=== PATIENT | female | born 1950 | race Caucasian/White ===

== ENCOUNTER 2022-02-22 08:00 | Outpatient (RCR) | payer MEDICARE, SELFPAY ==
[2022-02-08 08:18] VITALS: BP 184/75; PULSE 87; RESP 16; TEMP 35.7; BMI 37.4
--- NOTE | 2022-02-08 09:56 | PCM.WC.HP ---
History of Present Illness Date of Service: 02/08/22 Chief Complaint: Chronic venous stasis dermatitis, chronic venous insufficiency, hyperpigmentation, lipodermatosclerosis, swelling, edema -right lower extremity History of Wound: This is a 71-year-old obese female who presented with a 1 year history of venous stasis dermatitis located on the right pretibial area. The patient has a longstanding history of swelling and edema in her lower extremities, which is more severe and profound in the evenings. She also has pain, itching, and burning. She claims to sleep on a flat mattress at night. She is active. She denies a history of thrombophlebitis. Most recently, the patient has been treated at [facility], where Unna boots have been administered to the right lower extremity on a weekly basis for approximately 3 weeks. There has been only mild improvement, and the patient was referred for subsequent evaluation and management. Patient is obese and suffers from hypertension. [facility] Medical History Chronic venous hypertension with inflammation involving right side Chronic venous insufficiency Edema of both legs Hyperpigmentation Hypertension Left leg swelling Lipodermatosclerosis of right lower extremity Obesity (BMI 30-39.9) Right leg swelling Venous stasis dermatitis of right lower extremity Home Medications cholecalciferol (vitamin D3) 25 mcg (1,000 unit) capsule (Vitamin D3) 25 mcg PO 4X/DAY 02/08/22 [History Last Taken Unknown] glucosamine-chondroitin 250 mg-200 mg tablet (Osteo Bi-Flex) 2 tab PO DAILY 02/08/22 [History Last Taken Unknown] magnesium 250 mg tablet 250 mg PO DAILY 02/08/22 [History Last Taken Unknown] metoprolol succinate 50 mg tablet,extended release 24 hr 50 mg PO DAILY 02/08/22 [History Last Taken Unknown] Allergy/AdvReac Type Severity Reaction Status Date / Time Sulfa (Sulfonamide Allergy Other Verified 02/08/22 08:43 Antibiotics) Surgical History History of shoulder surgery Social History Smoking Status: Never smoker Vital Signs Vital Signs Vital Signs: 02/08/22 08:18 Temperature 96.2 F L Temperature Source Temporal Pulse Rate 87 Respiratory Rate 16 Blood Pressure 184/75 H Blood Pressure Mean 111 Blood Pressure Source Monitor Blood Pressure Position Sitting Blood Pressure Location Right Forearm Oxygen Delivery Method Room Air Weight Weight: 232 lb Body Mass Index (BMI) 37.4 Physical Exam Const alert, oriented x3, no apparent distress and well nourished Constitutional Narrative: The patient is obese. General Appearance: cooperative, comfortable, well kempt and well developed Orientation / Consciousness: awake, oriented to person, oriented to place and oriented to time Exam Limitations: no limitations HEENT normocephalic, head/scalp atraumatic, hearing grossly normal bilaterally and external ears normal Head and Scalp: normal to inspection, normocephalic and atraumatic Face and Sinus: normal facial exam External Ear: external ears normal Eyes PERRL and EOMs intact bilaterally General Eye: normal appearance of both eyes Resp normal respiratory effort, normal air movement, no retractions and no use of accessory muscles Effort and Inspection: able to speak in complete sentences Extremity no calf tenderness General Extremity: Negative for clubbing or cyanosis Skin Wound Narrative: Lipodermatosclerosis and hyperpigmentation are noted on the right pretibial area. There are no open wounds or ulcerations. Moderate swelling and edema are noted in the lower extremities bilaterally. Scattered varicosities are noted. Neuro oriented x3, CN's II-XII intact bilaterally, moves all extremities and no focal motor deficits Sensorium / Orientation: awake, alert, oriented to person, oriented to place and oriented to time Psych Appearance: grossly normal and appropriate Attitude: calm Activity / Motor Behavior: appropriate eye contact Speech: normal speech Mood & Affect: euthymic mood Thought Process: normal thought process Thought Content: normal thought content Attention / Concentration: attention grossly intact Debridement Note Debridement Note No debridement was completed: No debridement was completed today (There are no open wounds or ulcerations.) Post-Debridement Measurements and Additional Note: Post-Debridement Measurements/Treatment [facility]INA - Nurse 1 - General Ulcer Assessment Start: 02/08/22 08:14 Freq: Status: Active Protocol: DOTTIE Activity Type Activity Date Activity User E-sign Co-sign Detail Recorded Client Recorded Date Recorded By Document 02/08/22 08:18 MW [id number] 02/08/22 08:29 MW 02/08/22 08:18 WC - Today's Visit Information Type of service Initial Visit Arrival Mode Ambulatory Transfer Assistance None Accompanied by Patient Identification Verified (Name & Yes ) Patient Requires Transmission-Based No Precautions Safety Precautions NA Height and Weight Height 5 ft 6 in Weight 232 lb Weight in Pounds 232.0 lbs Body Mass Index (BMI) 37.4 BMI Classification Obese BSA - Azeem 2.13 Vital Signs Temperature (97.8 F-99.1 F) 96.2 F L Temperature Source Temporal Pulse Rate (60-100) 87 Pulse Location Monitor Respiratory Rate (12-18) 16 Respiratory rate source Observation Oxygen Delivery Method Room Air Blood Pressure (90/60-120/80) 184/75 H Blood Pressure Mean 111 Source Monitor Position Sitting Blood Pressure Location Right Forearm History Since Last Visit- (Skip if this is Patient's initial visit) Left Footwear Regular Shoe Right Footwear Regular Shoe Pain Scale: 0-10 Numeric Is Patient Pain Free? Yes Lower Extremity Assessment/ Foot Assessment/ Toe Nail Assessment Right -Popliteal Doppler Monophasic -Posterior Tibial Palpable No -Posterior Tibial Doppler Monophasic -Dorsalis Pedis Palpable No -Dorsalis Pedis Doppler Monophasic -Extremity Color Red -Hair Growth on Legs No -Hair Growth on Toes No -Temperature of Extremity Warm -Capillary Refill Less than 3 Seconds -Dependent Rubor No -Blanched when Elevated N/A -Lipodermatosclerosis No -Other Deformity No -Prior Foot Ulcer No -Charcot Joint No -Prior Amputation No -Thick No -Discolored No -Deformed No -Improper Length & Hygeine No Left -Popliteal Doppler Monophasic -Posterior Tibial Palpable No -Posterior Tibial Doppler Monophasic -Dorsalis Pedis Palpable No -Dorsalis Pedis Doppler Monophasic -Extremity Color Normal -Hair Growth on Legs No -Hair Growth on Toes No -Temperature of Extremity Warm -Capillary Refill Less than 3 Seconds -Dependent Rubor No -Blanched when Elevated N/A -Lipodermatosclerosis No -Other Deformity No -Prior Foot Ulcer No -Charcot Joint No -Prior Amputation No -Thick No -Discolored No -Deformed No -Improper Length & Hygeine No Neuropathy Assessment Feet - Top Side and Bottom <Entered> (a) Communication Assessment Preferred language Lithuanian Environmental Manager Required No Able to Read Yes Able to Write Yes Communication Tools None Right Hearing Abillity Normal Left Hearing Abillity Normal Visual Assistive Devices Glasses Teaching Assessment Preferences Verbal,Written Barriers to Learning None Readiness To Learn Excellent Willingness to Engage in Self Management High Activies Readiness to Engage in Self Management High Activities Anxiety Level Calm Cooperation Cooperative Perception Coherent Interest in Health Problem Asks Questions Education Importance Acknowledges Need Does Patient Smoke tobacco or other No substances Smoking Status Never smoker Is Patient Diabetic No Functional Assessment Recent Decline in Ability to Perform Denies Any Declines Assistive Device With Patient No Culture/Restorationism/Reading Teacher Cultural/Restorationism Needs that may affect No Treatment Plan Would you allow our hospital mechanical unit repairer to No meet you for the purpose of spiritual/ emotional support? Reading Teacher to contact place of [employer] No Teaching: Wound Center *Welcome to the Wound Center -Person Taught Patient -Teaching Method Discussion -Response to teaching Verbalize understanding (a) 1 - + WC - Nurse 1 - General Ulcer Measurement Start: 02/08/22 08:14 Freq: Status: Active Protocol: Activity Type Activity Date Activity User E-sign Co-sign Detail Recorded Client Recorded Date Recorded By Document 02/08/22 08:18 MW [id number] 02/08/22 08:29 MW 02/08/22 08:18 Wound Center Nurse 1 #1 right forrest -Combined with other wound No -Current Size (cm) - Length 0.8 -Current Size (cm) - Width 0.4 -Current Size (cm) - Depth 0.1 -Total Square Cm 0.32 -Date of Last Picture (Recall this 02/08/22 field) -Photo Taken Yes -Epithelialization None Present -Tunneling No -Undermining/Tunneling No -Circular Undermining No -Exudate Amt Small -Exudate Type Serosanguineous -Wound Margin Flat & Intact -Granulation Amt Small (1-33%) -Granulation Quality [place] -Slough/Fibrin Yes -Necrosis Amt Medium (34-66%) -Necrotic Tissue Type Adherent Slough -Structure Exposed N/A -Texture (Connie-wound Skin Appearance) Assessed, Localized Edema ,Scarring -Moisture (Connie-wound Skin Appearance) Assessed, Weeping -Color (Connie-wound Skin Appearance) Assessed, Hemosiderin Staining,Rubor -Temperature (Connie-wound Skin No Abnormality Appearance) (Pt Warm) -Tenderness on Palpation (Connie-wound No Skin Appearance) -Ulcer Cleansing Rinsed/ Irrigated with Saline -Foul Odor after Cleansing No -Anesthetic Used 5% Lidocaine Gel Lower Limb Edema Present Yes Right Calf (cm) 46.0 Right Ankle (cm) 25.5 Left Calf (cm) 46.6 Left Ankle (cm) 25.0 WC - Nurse 3 - General Ulcer D/C NN Start: 02/08/22 08:14 Freq: Status: Active Protocol: Activity Type Activity Date Activity User E-sign Co-sign Detail Recorded Client Recorded Date Recorded By Document 02/08/22 08:58 MI [id number] 02/08/22 09:00 AK 02/08/22 08:58 Wound Care Nurse 3 #1 right forrest -Ulcer Cleansing Rinsed/ Irrigated with Saline -Foul Odor after Cleansing No -Negative Pressure Wound Therapy N/A Left -Lotion applied to leg before No compression wrap -Multi-Layered Wrap Application Multi-Layer Comp - Left ($) Right -Lotion applied to leg before No compression wrap -Multi-Layered Wrap Application Unna Boot - Right ($) Pain Scale: 0-10 Numeric Is Patient Pain Free? Yes WC - Visit Discharge Discharge Condition Stable Ambulatory Status Ambulatory Transportation Private Auto Accompanied by Medication Reconcilliation completed & Yes provided to patient/care provider Clinical Summary of Care Provided Yes Notes: Naya olson Assessment/Plan Assessment/Plan (1) Venous stasis dermatitis of right lower extremity: CODE(S): I87.2 - Venous insufficiency (chronic) (peripheral) (2) Chronic venous hypertension with inflammation involving right side: CODE(S): I87.321 - Chronic venous hypertension (idiopathic) with inflammation of right lower extremity (3) Chronic venous insufficiency: CODE(S): I87.2 - Venous insufficiency (chronic) (peripheral) (4) Hyperpigmentation: CODE(S): L81.9 - Disorder of pigmentation, unspecified (5) Lipodermatosclerosis of right lower extremity: CODE(S): I83.11 - Varicose veins of right lower extremity with inflammation (6) Right leg swelling: CODE(S): M79.89 - Other specified soft tissue disorders (7) Left leg swelling: CODE(S): M79.89 - Other specified soft tissue disorders (8) Edema of both legs: CODE(S): R60.0 - Localized edema (9) Obesity (BMI 30-39.9): CODE(S): E66.9 - Obesity, unspecified (10) Hypertension: CODE(S): I10 - Essential (primary) hypertension (11) History of shoulder surgery: CODE(S): Z98.890 - Other specified postprocedural states PLAN: Plan This is a 71-year-old obese female who presents with evidence of chronic venous insufficiency and venous hypertension, and a finding of venous stasis dermatitis on the right pretibial area. She also has a history of swelling and edema in her lower extremities bilaterally, which which is more pronounced late in each day. The patient and her have been counseled as to the appropriate conservative treatment measures to be implemented relative to her chronic venous disease. Leg elevation is to be implemented, both during daytime and nighttime hours. Her legs are to be elevated to heart level, or higher. She is to continue sleeping on a flat mattress at night. Prolonged idle standing and sitting has been discouraged. Activity has been encouraged. Weight loss has been recommended. We are to implement compression to the lower extremities by means of compression wraps. On the right, we are to implement the use of an Unna boot. On the left, where there are no skin changes, we are to implement the use of 3M 2 layer compression wrap. Both lower extremity compression wraps will be changed twice weekly. We are to obtain a venous duplex examination to assess the status of the patient's venous patency and competence. She is to return in 1 week for reevaluation. Total time: 28 minutes
--- NOTE | 2022-02-11 08:44 | VDLE_ITS ---
Reason For Study: Non Healing Wound RIGHT LEFT CFV is compressible, spontaneous, phasic, CFV is compressible, spontaneous, phasic, competent and demonstrates normal competent, and demonstrates normal augmentation. augmentation. FV is compressible, spontaneous, phasic, FV is compressible, spontaneous, phasic, competent and demonstrates normal competent and demonstrates normal augmentation. augmentation. POP V is compressible, spontaneous, phasic, POP V is compressible, spontaneous, phasic, competent and demonstrates normal competent and demonstrates normal augmentation. augmentation. T/P Trunk is compressible. T/P Trunk is compressible. PTV is compressible. PTV is compressible. RT PerV is compressible. LT PerV is compressible. SFJ is INCOMPETENT and measures 0.52cm x 0.55 SFJ is competent and measures 0.51cm x0.48 cm. cm. GSV proximal thigh measures 0.34cm x 0.34 cm. GSV proximal thigh measures 0.36cm x 0.33 cm. GSV at knee measures 0.28cm x 0.32 cm. GSV at knee measures 0.44cm x 0.46 cm. GSV above knee is INCOMPETENT for greater GSV INCOMPETENT throughout for greater than than 0.5 seconds. 0.5 seconds. GSV below knee is competent. SSV proximal calf is competent and measures SSV proximal calf is INCOMPETENT for greater 0.25cm x 0.24 cm. than 0.5 seconds and measures 0.57cm x 0.64 Lt ASV mid thigh is Incompetent with reflux cm. greater than 0.5 sec. Rt ASV at the knee is Incompetent with reflux greater than 0.5 sec and a diameter of 0.38cm x 0.42cm. Procedure This is a venous duplex using B-mode, color flow and spectral Doppler. Exam performed in department. A preliminary report was called and/or faxed to Dr. Livingston. VL/Venous Duplex US - Kevin Extrem Interpretation Summary Deep veins of the lower extremities are bilaterally patent and compressible seg mentally. There is no evidence of deep vein thrombosis on either side. Valvular competence appears in tact within the proximal deep venous systems bilaterally. The great saphenous veins appear bila terally patent and compressible segmentally. The right sapheno-femoral junction is incompetent . T he left sapheno- femoral junction is competent . The right great saphenous vein appears incompet ent above the knee. The right great saphenous vein appears competent below the knee. The left great saphenous vein appears segmentally incompetent. The right small saphenous vein is patent and i ncompetent. The left small saphenous vein is patent and competent. The accessory saphenous vein at t he right knee is incompetent. The accessory saphenous vein in the left mid-thigh is incompetent. Ordering Physician: Luis Livingston Performed By: Reshma Wynn, THANH, RVT
[2022-02-11 11:38] VITALS: BP 198/76; PULSE 73; RESP 18; TEMP 36.2; BMI 37.4
[2022-02-15 13:18] VITALS: BP 177/81; PULSE 72; RESP 16; TEMP 35.8; BMI 37.4
--- NOTE | 2022-02-15 16:06 | PCM.WC.HP ---
History of Present Illness Date of Service: 02/15/22 Chief Complaint: Chronic venous stasis dermatitis, chronic venous insufficiency, hyperpigmentation, lipodermatosclerosis, swelling, edema - right lower extremity History of Wound: This is a 71-year-old obese female who presented with a 1 year history of venous stasis dermatitis located on the right pretibial area. The patient has a longstanding history of swelling and edema in her lower extremities, which is more severe and profound in the evenings. She also has pain, itching, and burning. She claims to sleep on a flat mattress at night. She is active. She denies a history of thrombophlebitis. The patient had been treated at [facility], where Unna boots had been administered to the right lower extremity on a weekly basis for approximately 3 weeks. There had been only mild improvement, and the patient was referred for subsequent evaluation and management. The patient is obese and suffers from hypertension. [facility] Medical History Chronic venous hypertension with inflammation involving right side Chronic venous insufficiency Edema of both legs Hyperpigmentation Hypertension Left leg swelling Lipodermatosclerosis of right lower extremity Obesity (BMI 30-39.9) Right leg swelling Venous stasis dermatitis of right lower extremity Home Medications cholecalciferol (vitamin D3) 25 mcg (1,000 unit) capsule (Vitamin D3) 25 mcg PO 4X/DAY 02/08/22 [History Last Taken Unknown] glucosamine-chondroitin 250 mg-200 mg tablet (Osteo Bi-Flex) 2 tab PO DAILY 02/08/22 [History Last Taken Unknown] magnesium 250 mg tablet 250 mg PO DAILY 02/08/22 [History Last Taken Unknown] metoprolol succinate 50 mg tablet,extended release 24 hr 50 mg PO DAILY 02/08/22 [History Last Taken Unknown] Allergy/AdvReac Type Severity Reaction Status Date / Time Sulfa (Sulfonamide Allergy Other Verified 02/08/22 08:43 Antibiotics) Surgical History History of shoulder surgery Social History Smoking Status: Never smoker Vital Signs Vital Signs Vital Signs: 02/15/22 13:18 Temperature 96.4 F L Temperature Source Temporal Pulse Rate 72 Respiratory Rate 16 Blood Pressure 177/81 H Blood Pressure Mean 113 Blood Pressure Source Monitor Blood Pressure Position Sitting Blood Pressure Location Left Forearm Oxygen Delivery Method Room Air Weight Weight: 232 lb Body Mass Index (BMI) 37.4 Physical Exam Const alert, oriented x3, no apparent distress and well nourished Constitutional Narrative: The patient is obese. General Appearance: cooperative, comfortable, well kempt and well developed Orientation / Consciousness: awake, oriented to person, oriented to place and oriented to time Exam Limitations: no limitations HEENT normocephalic, head/scalp atraumatic, hearing grossly normal bilaterally and external ears normal Head and Scalp: normal to inspection, normocephalic and atraumatic Face and Sinus: normal facial exam External Ear: external ears normal Eyes PERRL and EOMs intact bilaterally General Eye: normal appearance of both eyes Resp normal respiratory effort, normal air movement, no retractions and no use of accessory muscles Effort and Inspection: able to speak in complete sentences Extremity no calf tenderness General Extremity: Negative for clubbing or cyanosis Skin Wound Narrative: Lipodermatosclerosis and hyperpigmentation are noted on the right pretibial area, as well as inflammatory erythema. A very small excoriation is noted on the right pretibial area. Dimensions are documented elsewhere. Swelling and edema in the right lower extremity is minimal. Scattered varicosities are noted. Neuro oriented x3, CN's II-XII intact bilaterally, moves all extremities and no focal motor deficits Sensorium / Orientation: awake, alert, oriented to person, oriented to place and oriented to time Psych Appearance: grossly normal and appropriate Attitude: calm Activity / Motor Behavior: appropriate eye contact Speech: normal speech Mood & Affect: euthymic mood Thought Process: normal thought process Thought Content: normal thought content Attention / Concentration: attention grossly intact Debridement Note Debridement Note No debridement was completed: No debridement was completed today (There are no open wounds or ulcerations.) Post-Debridement Measurements and Additional Note: Post-Debridement Measurements/Treatment FINA - Nurse 1 - General Ulcer Assessment Start: 02/08/22 08:14 Freq: Status: Active Protocol: DOTTIE Activity Type Activity Date Activity User E-sign Co-sign Detail Recorded Client Recorded Date Recorded By Document 02/08/22 08:18 MW [id number] 02/08/22 08:29 MW Document 02/11/22 11:38 RB [id number] 02/11/22 11:40 RB Document 02/15/22 13:18 MW [id number] 02/15/22 13:36 MW 02/08/22 02/11/22 02/15/22 08:18 11:38 13:18 WC - Today's Visit Information Type of service Initial Visit Nurse-only Follow-up Visit Visit (Physician/VP SOFTWARE SUPPORT ) Arrival Mode Ambulatory Ambulatory Ambulatory Transfer Assistance None None None Accompanied by Patient Identification Verified (Name & Yes Yes Yes ) Patient Requires Transmission-Based No No No Precautions Safety Precautions NA NA Height and Weight Height 5 ft 6 in Weight 232 lb Weight in Pounds 232.0 lbs Body Mass Index (BMI) 37.4 37.4 37.4 BMI Classification Obese Obese Obese BSA - Azeem 2.13 Vital Signs Temperature (97.8 F-99.1 F) 96.2 F L 97.1 F L 96.4 F L Temperature Source Temporal Temporal Temporal Pulse Rate (60-100) 87 73 72 Pulse Location Monitor Monitor Monitor Respiratory Rate (12-18) 16 18 16 Respiratory rate source Observation Observation Observation Oxygen Delivery Method Room Air Room Air Blood Pressure (90/60-120/80) 184/75 H 198/76 H 177/81 H Blood Pressure Mean 111 116 113 Source Monitor Monitor Monitor Position Sitting Semi-Fowlers Sitting Blood Pressure Location Right Forearm Left Arm Left Forearm History Since Last Visit- (Skip if this is Patient's initial visit) Have you changed medications since your No No last visit? Any new allergies or adverse reactions No No Had a fall/change in ADL's that may No No increase risk of falls Signs or symptoms of abuse and/or No No neglect since last visit Have you been in the hospital since your No last visit? Has dressing in place as prescribed Yes Yes Has compression in place as prescribed Yes Yes Has offloadiing in place as prescribed No N/A Experienced any changes in pain level or No No management Left Footwear Regular Shoe Regular Shoe Right Footwear Regular Shoe Regular Shoe Pain Scale: 0-10 Numeric Is Patient Pain Free? Yes Yes Yes Lower Extremity Assessment/ Foot Assessment/ Toe Nail Assessment Right -Popliteal Doppler Monophasic -Posterior Tibial Palpable No -Posterior Tibial Doppler Monophasic -Dorsalis Pedis Palpable No -Dorsalis Pedis Doppler Monophasic -Extremity Color Red -Hair Growth on Legs No -Hair Growth on Toes No -Temperature of Extremity Warm -Capillary Refill Less than 3 Seconds -Dependent Rubor No -Blanched when Elevated N/A -Lipodermatosclerosis No -Other Deformity No -Prior Foot Ulcer No -Charcot Joint No -Prior Amputation No -Thick No -Discolored No -Deformed No -Improper Length & Hygeine No Left -Popliteal Doppler Monophasic -Posterior Tibial Palpable No -Posterior Tibial Doppler Monophasic -Dorsalis Pedis Palpable No -Dorsalis Pedis Doppler Monophasic -Extremity Color Normal -Hair Growth on Legs No -Hair Growth on Toes No -Temperature of Extremity Warm -Capillary Refill Less than 3 Seconds -Dependent Rubor No -Blanched when Elevated N/A -Lipodermatosclerosis No -Other Deformity No -Prior Foot Ulcer No -Charcot Joint No -Prior Amputation No -Thick No -Discolored No -Deformed No -Improper Length & Hygeine No Neuropathy Assessment Feet - Top Side and Bottom <Entered> (a) Communication Assessment Preferred language [employer] Up Technician Required No Able to Read Yes Able to Write Yes Communication Tools None Right Hearing Abillity Normal Left Hearing Abillity Normal Visual Assistive Devices Glasses Teaching Assessment Preferences Verbal,Written Barriers to Learning None Readiness To Learn Excellent Willingness to Engage in Self Management High Activies Readiness to Engage in Self Management High Activities Anxiety Level Calm Cooperation Cooperative Perception Coherent Interest in Health Problem Asks Questions Education Importance Acknowledges Need Does Patient Smoke tobacco or other No substances Smoking Status Never smoker Is Patient Diabetic No Functional Assessment Recent Decline in Ability to Perform Denies Any Declines Assistive Device With Patient No Culture/Protestant/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 Airfreight Loading Supervisor to contact place of christianity No Teaching: Wound Center *Welcome to the Wound Center -Person Taught Patient -Teaching Method Discussion -Response to teaching Verbalize understanding (a) 1 - + WC - Nurse 1 - General Ulcer Measurement Start: 02/08/22 08:14 Freq: Status: Active Protocol: Activity Type Activity Date Activity User E-sign Co-sign Detail Recorded Client Recorded Date Recorded By Document 02/08/22 08:18 MW [id number] 02/08/22 08:29 MW Document 02/11/22 11:38 RB [id number] 02/11/22 11:40 RB Document 02/15/22 13:18 MW [id number] 02/15/22 13:36 MW 02/08/22 02/11/22 02/15/22 08:18 11:38 13:18 Wound Center Nurse 1 #1 right forrest -Combined with other wound No No -Current Size (cm) - Length 0.8 0.1 -Current Size (cm) - Width 0.4 0.1 -Current Size (cm) - Depth 0.1 0.1 -Total Square Cm 0.32 0.01 -Date of Last Picture (Recall this 02/08/22 field) -Photo Taken Yes -Epithelialization None Present Large 67-100% -Tunneling No No -Undermining/Tunneling No No -Circular Undermining No No -Exudate Amt Small Small -Exudate Type Serosanguineous Serosanguineous -Wound Margin Flat & Intact Flat & Intact -Granulation Amt Small (1-33%) Large (67-100%) -Granulation Quality Tracy Tracy -Slough/Fibrin Yes Yes -Necrosis Amt Medium (34-66%) Small (1-33%) -Necrotic Tissue Type Adherent Slough Adherent Slough -Structure Exposed N/A N/A -Texture (Connie-wound Skin Appearance) Assessed, Assessed, Localized Edema Localized Edema ,Scarring ,Scarring -Moisture (Connie-wound Skin Appearance) Assessed, Assessed,Dry/ Weeping Scaly -Color (Connie-wound Skin Appearance) Assessed, Assessed, Hemosiderin Hemosiderin Staining,Rubor Staining -Temperature (Connie-wound Skin No Abnormality No Abnormality Appearance) (Pt Warm) (Pt Warm) -Tenderness on Palpation (Connie-wound No No Skin Appearance) -Ulcer Cleansing Rinsed/ Soap and Water Irrigated with Saline -Foul Odor after Cleansing No No -Anesthetic Used 5% Lidocaine 5% Lidocaine Gel Gel Lower Limb Edema Present Yes Yes Yes Right Calf (cm) 46.0 46 45.5 Right Ankle (cm) 25.5 25 26.0 Left Calf (cm) 46.6 45.2 45.0 Left Ankle (cm) 25.0 24.5 24.8 WC - Nurse 2 - General Ulcer CM Notes Start: 02/08/22 08:14 Freq: Status: Active Protocol: Activity Type Activity Date Activity User E-sign Co-sign Detail Recorded Client Recorded Date Recorded By Document 02/15/22 15:05 PL [id number] 02/15/22 15:06 PL 02/15/22 15:05 Wound Center Nurse 2 #1 right forrest -Procedure Performed No -Post Debridement (cm) - Length 0.1 -Post Debridement (cm) - Width 0.1 -Post Debridement (cm) - Depth 0.1 -Total Square (Post) (cm) 0.01 Pain Scale: 0-10 Numeric Is Patient Pain Free? Yes WC - Nurse 3 - General Ulcer D/C NN Start: 02/08/22 08:14 Freq: Status: Active Protocol: Activity Type Activity Date Activity User E-sign Co-sign Detail Recorded Client Recorded Date Recorded By Document 02/08/22 08:58 AK [id number] 02/08/22 09:00 AK Document 02/11/22 11:38 RB [id number] 02/11/22 11:40 RB Document 02/15/22 14:22 ML [id number] 02/15/22 14:22 ML 02/08/22 02/11/22 02/15/22 08:58 11:38 14:22 Wound Care Nurse 3 #1 right forrest -Ulcer Cleansing Rinsed/ Irrigated with Saline -Foul Odor after Cleansing No -Negative Pressure Wound Therapy N/A Left -Lotion applied to leg before No compression wrap -Multi-Layered Wrap Application Multi-Layer Multi-Layer Unna Boot - Comp - Left ($) Comp - Left ($) Left ($) Right -Lotion applied to leg before No compression wrap -Multi-Layered Wrap Application Unna Boot - Unna Boot - Multi-Layer Right ($) Right ($) Comp - Right ($ ) Treatment Response Procedure Tolerated Well Vital Signs Temperature (97.8 F-99.1 F) 97.1 F L Temperature Source Temporal Pulse Rate (60-100) 73 Pulse Location Monitor Respiratory Rate (12-18) 18 Respiratory rate source Observation Blood Pressure (90/60-120/80) 198/76 H Blood Pressure Mean 116 Source Monitor Position Semi-Fowlers Blood Pressure Location Left Arm Pain Scale: 0-10 Numeric Is Patient Pain Free? Yes Yes Yes WC - Visit Discharge Discharge Condition Stable Stable Ambulatory Status Ambulatory Ambulatory Transportation Private Auto Private Auto Accompanied by Medication Reconcilliation completed & Yes No provided to patient/care provider Clinical Summary of Care Provided Yes Yes Notes: Naya whitney Assessment/Plan Assessment/Plan (1) Venous stasis dermatitis of right lower extremity: CODE(S): I87.2 - Venous insufficiency (chronic) (peripheral) (2) Chronic venous hypertension with inflammation involving right side: CODE(S): I87.321 - Chronic venous hypertension (idiopathic) with inflammation of right lower extremity (3) Chronic venous insufficiency: CODE(S): I87.2 - Venous insufficiency (chronic) (peripheral) (4) Hyperpigmentation: CODE(S): L81.9 - Disorder of pigmentation, unspecified (5) Lipodermatosclerosis of right lower extremity: CODE(S): I83.11 - Varicose veins of right lower extremity with inflammation (6) Right leg swelling: CODE(S): M79.89 - Other specified soft tissue disorders (7) Left leg swelling: CODE(S): M79.89 - Other specified soft tissue disorders (8) Edema of both legs: CODE(S): R60.0 - Localized edema (9) Obesity (BMI 30-39.9): CODE(S): E66.9 - Obesity, unspecified (10) Hypertension: CODE(S): I10 - Essential (primary) hypertension (11) History of shoulder surgery: CODE(S): Z98.890 - Other specified postprocedural states PLAN: Plan This is a 71-year-old obese female who presents with evidence of chronic venous insufficiency and venous hypertension, and a finding of venous stasis dermatitis on the right pretibial area. She also has a history of swelling and edema in her lower extremities bilaterally, which which is more pronounced late in each day. The patient and her have been counseled as to the appropriate conservative treatment measures to be implemented relative to her chronic venous disease. Leg elevation is to be implemented, both during daytime and nighttime hours. Her legs are to be elevated to heart level, or higher. She is to continue sleeping on a flat mattress at night. Prolonged idle standing and sitting have been discouraged. Activity has been encouraged. Weight loss has been recommended. We are to continue compression to the lower extremities by means of compression wraps. On the right, we are to use an Unna boot. On the left, where there are no skin changes, we are to use a 3M 2 layer compression wrap. Both lower extremity compression wraps will be changed twice weekly. The patient has been provided a prescription for graduated compression stockings of 20 to 30 mmHg compression, knee-high length. She is to be measured and fitted for the stockings, and is to wear the on a daily basis once they have been obtained. A venous duplex ultrasound examination has been obtained which reveals incompetence of the right great saphenous vein above the knee, incompetence of the right small saphenous vein, and incompetence of the right accessory saphenous vein at knee level. It was felt that the patient may ultimately benefit from endovenous laser ablation of the incompetent superficial veins in the right lower extremity, given her long history of symptoms and manifestations related to her venous disease. We have discussed the endovenous laser ablation procedure in detail. The indications and risks have been explained. Expectations have been discussed. We are to continue current conservative treatment measures for now, and will consider the role of endovenous laser ablation for the right lower extremity in the near future. As mentioned, measures are to include leg elevation, avoidance of vital standing and sitting, graduated compression stockings, weight control measures, active lifestyle, [id number] analgesics, etc. She is to return in 1 week for reevaluation. Total time: 29 minutes
[2022-02-18 08:19] VITALS: BP 193/91; PULSE 89; TEMP 36.6; BMI 37.4
[2022-02-22 08:29] VITALS: BP 159/94; PULSE 87; TEMP 36.1; BMI 37.4
--- NOTE | 2022-02-22 12:51 | HP.PCM_ITS ---
History of Present Illness Date of Service: 02/22/22 Chief Complaint: Chronic venous stasis dermatitis, chronic venous insufficiency, hyperpigmentation, lipodermatosclerosis, swelling, edema - right lower extremity History of Wound: This is a 71-year-old obese female who presented with a 1 year history of venous stasis dermatitis located on the right pretibial area. The patient has a longstanding history of swelling and edema in her lower extremities, which is more severe and profound in the evenings. She also has pain, itching, and burning. She claims to sleep on a flat mattress at night. She is active. She denies a history of thrombophlebitis. The patient had been treated at [facility], where Unna boots had been administered to the right lower extremity on a weekly basis for approximately 3 weeks. There had been only mild improvement, and the patient was referred for subsequent evaluation and management. The patient is obese and suffers from hypertension. [facility]LY [facility] Medical History Chronic venous hypertension with inflammation involving right side Chronic venous insufficiency Edema of both legs Hyperpigmentation Hypertension Left leg swelling Lipodermatosclerosis of right lower extremity Obesity (BMI 30-39.9) Right leg swelling Venous stasis dermatitis of right lower extremity Home Medications cholecalciferol (vitamin D3) 25 mcg (1,000 unit) capsule (Vitamin D3) 25 mcg PO 4X/DAY 02/08/22 [History Last Taken Unknown] glucosamine-chondroitin 250 mg-200 mg tablet (Osteo Bi-Flex) 2 tab PO DAILY 02/08/22 [History Last Taken Unknown] magnesium 250 mg tablet 250 mg PO DAILY 02/08/22 [History Last Taken Unknown] metoprolol succinate 50 mg tablet,extended release 24 hr 50 mg PO DAILY 02/08/22 [History Last Taken Unknown] Allergy/AdvReac Type Severity Reaction Status Date / Time Sulfa (Sulfonamide Allergy Other Verified 02/08/22 08:43 Antibiotics) Surgical History History of shoulder surgery Social History Smoking Status: Never smoker Vital Signs Vital Signs Vital Signs: 02/22/22 08:29 Temperature 96.9 F L Temperature Source Temporal Pulse Rate 87 Blood Pressure 159/94 H Blood Pressure Mean 115 Blood Pressure Source Monitor Weight Weight: 232 lb Body Mass Index (BMI) 37.4 Physical Exam Const alert, oriented x3, no apparent distress and well nourished Constitutional Narrative: The patient is obese. General Appearance: cooperative, comfortable, well kempt and well developed Orientation / Consciousness: awake, oriented to person, oriented to place and oriented to time Exam Limitations: no limitations HEENT normocephalic, head/scalp atraumatic, hearing grossly normal bilaterally and external ears normal Head and Scalp: normal to inspection, normocephalic and atraumatic Face and Sinus: normal facial exam External Ear: external ears normal Eyes PERRL and EOMs intact bilaterally General Eye: normal appearance of both eyes Resp normal respiratory effort, normal air movement, no retractions and no use of accessory muscles Effort and Inspection: able to speak in complete sentences Extremity no calf tenderness General Extremity: Negative for clubbing or cyanosis Skin Wound Narrative: Lipodermatosclerosis and hyperpigmentation are noted on the right pretibial area, as well as inflammatory erythema. Excoriations and ulcerations in the right lower extremity are now completely healed and epithelialized. There is no significant swelling or edema in the patient's right lower extremity. Scattered varicosities are noted. Neuro oriented x3, CN's II-XII intact bilaterally, moves all extremities and no focal motor deficits Sensorium / Orientation: awake, alert, oriented to person, oriented to place and oriented to time Psych Appearance: grossly normal and appropriate Attitude: calm Activity / Motor Behavior: appropriate eye contact Speech: normal speech Mood & Affect: euthymic mood Thought Process: normal thought process Thought Content: normal thought content Attention / Concentration: attention grossly intact Debridement Note Debridement Note No debridement was completed: No debridement was completed today (There are no open wounds or ulcerations at this time.) Post-Debridement Measurements and Additional Note: Post-Debridement Measurements/Treatment WC - Nurse 1 - General Ulcer Assessment Start: 02/08/22 08:14 Freq: Status: Active Protocol: FINA.LOR Activity Type Activity Date Activity User E-sign Co-sign Detail Recorded Client Recorded Date Recorded By Document 02/08/22 08:18 MW [id number] 02/08/22 08:29 MW Document 02/11/22 11:38 RB [id number] 02/11/22 11:40 RB Document 02/15/22 13:18 MW [id number] 02/15/22 13:36 MW Document 02/18/22 08:19 AK [id number] 02/18/22 08:21 AK Document 02/22/22 08:29 AK [id number] 02/22/22 08:31 AK 02/08/22 02/11/22 02/15/22 08:18 11:38 13:18 WC - Today's Visit Information Type of service Initial Visit Nurse-only Follow-up Visit Visit (Physician/LABORER STORES ) Arrival Mode Ambulatory Ambulatory Ambulatory Transfer Assistance None None None Accompanied by Patient Identification Verified (Name & Yes Yes Yes ) Patient Requires Transmission-Based No No No Precautions Safety Precautions NA NA Height and Weight Height 5 ft 6 in Weight 232 lb Weight in Pounds 232.0 lbs Body Mass Index (BMI) 37.4 37.4 37.4 BMI Classification Obese Obese Obese BSA - Azeem 2.13 Vital Signs Temperature (97.8 F-99.1 F) 96.2 F L 97.1 F L 96.4 F L Temperature Source Temporal Temporal Temporal Pulse Rate (60-100) 87 73 72 Pulse Location Monitor Monitor Monitor Respiratory Rate (12-18) 16 18 16 Respiratory rate source Observation Observation Observation Oxygen Delivery Method Room Air Room Air Blood Pressure (90/60-120/80) 184/75 H 198/76 H 177/81 H Blood Pressure Mean 111 116 113 Source Monitor Monitor Monitor Position Sitting Semi-Fowlers Sitting Blood Pressure Location Right Forearm Left Arm Left Forearm History Since Last Visit- (Skip if this is Patient's initial visit) Have you changed medications since your No No last visit? Any new allergies or adverse reactions No No Had a fall/change in ADL's that may No No increase risk of falls Signs or symptoms of abuse and/or No No neglect since last visit Have you been in the hospital since your No last visit? Has dressing in place as prescribed Yes Yes Has compression in place as prescribed Yes Yes Has offloadiing in place as prescribed No N/A Experienced any changes in pain level or No No management Left Footwear Regular Shoe Regular Shoe Right Footwear Regular Shoe Regular Shoe Pain Scale: 0-10 Numeric Is Patient Pain Free? Yes Yes Yes Lower Extremity Assessment/ Foot Assessment/ Toe Nail Assessment Right -Popliteal Doppler Monophasic -Posterior Tibial Palpable No -Posterior Tibial Doppler Monophasic -Dorsalis Pedis Palpable No -Dorsalis Pedis Doppler Monophasic -Extremity Color Red -Hair Growth on Legs No -Hair Growth on Toes No -Temperature of Extremity Warm -Capillary Refill Less than 3 Seconds -Dependent Rubor No -Blanched when Elevated N/A -Lipodermatosclerosis No -Other Deformity No -Prior Foot Ulcer No -Charcot Joint No -Prior Amputation No -Thick No -Discolored No -Deformed No -Improper Length & Hygeine No Left -Popliteal Doppler Monophasic -Posterior Tibial Palpable No -Posterior Tibial Doppler Monophasic -Dorsalis Pedis Palpable No -Dorsalis Pedis Doppler Monophasic -Extremity Color Normal -Hair Growth on Legs No -Hair Growth on Toes No -Temperature of Extremity Warm -Capillary Refill Less than 3 Seconds -Dependent Rubor No -Blanched when Elevated N/A -Lipodermatosclerosis No -Other Deformity No -Prior Foot Ulcer No -Charcot Joint No -Prior Amputation No -Thick No -Discolored No -Deformed No -Improper Length & Hygeine No Neuropathy Assessment Feet - Top Side and Bottom <Entered> (a) Communication Assessment Preferred language [employer] Data [employer]st Required No Able to Read Yes Able to Write Yes Communication Tools None Right Hearing Abillity Normal Left Hearing Abillity Normal Visual Assistive Devices Glasses Teaching Assessment Preferences Verbal,Written Barriers to Learning None Readiness To Learn Excellent Willingness to Engage in Self Management High Activies Readiness to Engage in Self Management High Activities Anxiety Level Calm Cooperation Cooperative Perception Coherent Interest in Health Problem Asks Questions Education Importance Acknowledges Need Does Patient Smoke tobacco or other No substances Smoking Status Never smoker Is Patient Diabetic No Functional Assessment Recent Decline in Ability to Perform Denies Any Declines Assistive Device With Patient No Culture/Jehovah'S Witness/Manager Revenue Cultural/Jehovah'S Witness Needs that may affect No Treatment Plan Would you allow our hospital baseball scout to No meet you for the purpose of spiritual/ emotional support? Manager Revenue to contact place of caodaism No Teaching: Wound Center *Welcome to the Wound Center -Person Taught Patient -Teaching Method Discussion -Response to teaching Verbalize understanding 02/18/22 02/22/22 08:19 08:29 WC - Today's Visit Information Type of service Nurse-only Follow-up Visit Visit (Physician/LABORER STORES ) Arrival Mode Ambulatory Ambulatory Transfer Assistance Accompanied by Patient Identification Verified (Name & Yes Yes ) Patient Requires Transmission-Based No Precautions Safety Precautions Height and Weight Height Weight Weight in Pounds Body Mass Index (BMI) 37.4 37.4 BMI Classification Obese Obese BSA - Azeem Vital Signs Temperature (97.8 F-99.1 F) 97.9 F 96.9 F L Temperature Source Temporal Temporal Pulse Rate (60-100) 89 87 Pulse Location Monitor Monitor Respiratory Rate (12-18) Respiratory rate source Oxygen Delivery Method Blood Pressure (90/60-120/80) 193/91 H 159/94 H Blood Pressure Mean 125 115 Source Monitor Monitor Position Blood Pressure Location History Since Last Visit- (Skip if this is Patient's initial visit) Have you changed medications since your No No last visit? Any new allergies or adverse reactions No No Had a fall/change in ADL's that may No No increase risk of falls Signs or symptoms of abuse and/or No No neglect since last visit Have you been in the hospital since your No No last visit? Has dressing in place as prescribed No Has compression in place as prescribed N/A Yes Has offloadiing in place as prescribed N/A N/A Experienced any changes in pain level or No No management Left Footwear Regular Shoe Regular Shoe Right Footwear Regular Shoe Regular Shoe Pain Scale: 0-10 Numeric Is Patient Pain Free? Yes Yes Lower Extremity Assessment/ Foot Assessment/ Toe Nail Assessment Right -Popliteal Doppler -Posterior Tibial Palpable -Posterior Tibial Doppler -Dorsalis Pedis Palpable -Dorsalis Pedis Doppler -Extremity Color -Hair Growth on Legs -Hair Growth on Toes -Temperature of Extremity -Capillary Refill -Dependent Rubor -Blanched when Elevated -Lipodermatosclerosis -Other Deformity -Prior Foot Ulcer -Charcot Joint -Prior Amputation -Thick -Discolored -Deformed -Improper Length & Hygeine Left -Popliteal Doppler -Posterior Tibial Palpable -Posterior Tibial Doppler -Dorsalis Pedis Palpable -Dorsalis Pedis Doppler -Extremity Color -Hair Growth on Legs -Hair Growth on Toes -Temperature of Extremity -Capillary Refill -Dependent Rubor -Blanched when Elevated -Lipodermatosclerosis -Other Deformity -Prior Foot Ulcer -Charcot Joint -Prior Amputation -Thick -Discolored -Deformed -Improper Length & Hygeine Neuropathy Assessment Feet - Top Side and Bottom Communication Assessment Preferred sexton helper Required Able to Read Able to Write Communication Tools Right Hearing Abillity Left Hearing Abillity Visual Assistive Devices Teaching Assessment Preferences Barriers to Learning Readiness To Learn Willingness to Engage in Self Management Activies Readiness to Engage in Self Management Activities Anxiety Level Cooperation Perception Interest in Health Problem Education Importance Does Patient Smoke tobacco or other substances Smoking Status Is Patient Diabetic Functional Assessment Recent Decline in Ability to Perform Assistive Device With Patient Culture/Jehovah'S Witness/Manager Revenue Cultural/Jehovah'S Witness Needs that may affect Treatment Plan Would you allow our hospital baseball scout to meet you for the purpose of spiritual/ emotional support? Manager Revenue to contact place of caodaism Teaching: Wound Center *Welcome to the Wound Center -Person Taught -Teaching Method -Response to teaching (a) 1 - + WC - Nurse 1 - General Ulcer Measurement Start: 02/08/22 08:14 Freq: Status: Active Protocol: Activity Type Activity Date Activity User E-sign Co-sign Detail Recorded Client Recorded Date Recorded By Document 02/08/22 08:18 MW [id number] 02/08/22 08:29 MW Document 02/11/22 11:38 RB [id number] 02/11/22 11:40 RB Document 02/15/22 13:18 MW [id number] 02/15/22 13:36 MW Document 02/18/22 08:21 AK [id number] 02/18/22 08:21 AK Document 02/22/22 08:29 AK [id number] 02/22/22 08:31 AK 02/08/22 02/11/22 02/15/22 08:18 11:38 13:18 Wound Center Nurse 1 #1 right forrest -Combined with other wound No No -Current Size (cm) - Length 0.8 0.1 -Current Size (cm) - Width 0.4 0.1 -Current Size (cm) - Depth 0.1 0.1 -Total Square Cm 0.32 0.01 -Date of Last Picture (Recall this 02/08/22 field) -Photo Taken Yes -Epithelialization None Present Large 67-100% -Tunneling No No -Undermining/Tunneling No No -Circular Undermining No No -Change in Wound Grade/Stage -Exudate Amt Small Small -Exudate Type Serosanguineous Serosanguineous -Wound Margin Flat & Intact Flat & Intact -Granulation Amt Small (1-33%) Large (67-100%) -Granulation Quality Fithian Fithian -Slough/Fibrin Yes Yes -Necrosis Amt Medium (34-66%) Small (1-33%) -Necrotic Tissue Type Adherent Slough Adherent Slough -Structure Exposed N/A N/A -Texture (Conine-wound Skin Appearance) Assessed, Assessed, Localized Edema Localized Edema ,Scarring ,Scarring -Moisture (Connie-wound Skin Appearance) Assessed, Assessed,Dry/ Weeping Scaly -Color (Connie-wound Skin Appearance) Assessed, Assessed, Hemosiderin Hemosiderin Staining,Rubor Staining -Temperature (Connie-wound Skin No Abnormality No Abnormality Appearance) (Pt Warm) (Pt Warm) -Tenderness on Palpation (Connie-wound No No Skin Appearance) -Ulcer Cleansing Rinsed/ Soap and Water Irrigated with Saline -Foul Odor after Cleansing No No -Anesthetic Used 5% Lidocaine 5% Lidocaine Gel Gel Lower Limb Edema Present Yes Yes Yes Right Calf (cm) 46.0 46 45.5 Right Ankle (cm) 25.5 25 26.0 Left Calf (cm) 46.6 45.2 45.0 Left Ankle (cm) 25.0 24.5 24.8 02/18/22 02/22/22 08:21 08:29 Wound Center Nurse 1 #1 right forrest -Combined with other wound No -Current Size (cm) - Length 0.1 -Current Size (cm) - Width 0.1 -Current Size (cm) - Depth 0.1 -Total Square Cm 0.01 -Date of Last Picture (Recall this field) -Photo Taken No -Epithelialization -Tunneling No -Undermining/Tunneling No -Circular Undermining No -Change in Wound Grade/Stage No -Exudate Amt None Present -Exudate Type -Wound Margin -Granulation Amt None Present (0 %) -Granulation Quality N/A -Slough/Fibrin No -Necrosis Amt None Present (0 %) -Necrotic Tissue Type -Structure Exposed N/A -Texture (Connie-wound Skin Appearance) No Abnormality, Assessed -Moisture (Connie-wound Skin Appearance) -Color (Connie-wound Skin Appearance) Assessed, Hemosiderin Staining -Temperature (Connie-wound Skin No Abnormality Appearance) (Pt Warm) -Tenderness on Palpation (Connie-wound No Skin Appearance) -Ulcer Cleansing Soap and Water -Foul Odor after Cleansing No -Anesthetic Used Lower Limb Edema Present Yes Right Calf (cm) 44 46 Right Ankle (cm) 23.5 23 Left Calf (cm) 43 44 Left Ankle (cm) 24.5 24.6 WC - Nurse 2 - General Ulcer CM Notes Start: 02/08/22 08:14 Freq: Status: Active Protocol: Activity Type Activity Date Activity User E-sign Co-sign Detail Recorded Client Recorded Date Recorded By Document 02/15/22 15:05 PL [id number] 02/15/22 15:06 PL Document 02/22/22 11:31 PL [id number] 02/22/22 11:31 PL 02/15/22 02/22/22 15:05 11:31 Wound Center Nurse 2 #1 right forrest -Procedure Performed No -Post Debridement (cm) - Length 0.1 -Post Debridement (cm) - Width 0.1 -Post Debridement (cm) - Depth 0.1 -Total Square (Post) (cm) 0.01 Pain Scale: 0-10 Numeric Is Patient Pain Free? Yes Yes - Nurse 3 - General Ulcer D/C NN Start: 02/08/22 08:14 Freq: Status: Active Protocol: Activity Type Activity Date Activity User E-sign Co-sign Detail Recorded Client Recorded Date Recorded By Document 02/08/22 08:58 AK [id number] 02/08/22 09:00 AK Document 02/11/22 11:38 RB [id number] 02/11/22 11:40 RB Document 02/15/22 14:22 ML [id number] 02/15/22 14:22 ML Document 02/18/22 08:19 AK [id number] 02/18/22 08:21 AK Document 02/22/22 08:41 MW [id number] 02/22/22 08:43 MW 02/08/22 02/11/22 02/15/22 08:58 11:38 14:22 Wound Care Nurse 3 #1 right forrest -Ulcer Cleansing Rinsed/ Irrigated with Saline -Foul Odor after Cleansing No -Negative Pressure Wound Therapy N/A Left -Lotion applied to leg before No compression wrap -Multi-Layered Wrap Application Multi-Layer Multi-Layer Unna Boot - Comp - Left ($) Comp - Left ($) Left ($) -Tubular Bandage -Size of Tubigrip Used -Size E ($) Right -Lotion applied to leg before No compression wrap -Multi-Layered Wrap Application Unna Boot - Unna Boot - Multi-Layer Right ($) Right ($) Comp - Right ($ ) -Compression Wrap -Tubular Bandage -Size of Tubigrip Used -Size D ($) Treatment Response Procedure Tolerated Well Vital Signs Temperature (97.8 F-99.1 F) 97.1 F L Temperature Source Temporal Pulse Rate (60-100) 73 Pulse Location Monitor Respiratory Rate (12-18) 18 Respiratory rate source Observation Blood Pressure (90/60-120/80) 198/76 H Blood Pressure Mean 116 Source Monitor Position Semi-Fowlers Blood Pressure Location Left Arm Pain Scale: 0-10 Numeric Is Patient Pain Free? Yes Yes Yes Teaching: Wound Center Compression Wraps & Stockings -Person Taught -Teaching Method -Response to teaching Discharge Instructions -Person Taught -Teaching Method -Response to teaching WC - Visit Discharge Discharge Condition Stable Stable Ambulatory Status Ambulatory Ambulatory Transportation Private Auto Private Auto Accompanied by Medication Reconcilliation completed & Yes No provided to patient/care provider Clinical Summary of Care Provided Yes Yes Notes: Naya olson 02/18/22 02/22/22 08:19 08:41 Wound Care Nurse 3 #1 right forrest -Ulcer Cleansing Soap and Water -Foul Odor after Cleansing No -Negative Pressure Wound Therapy N/A Left -Lotion applied to leg before No No compression wrap -Multi-Layered Wrap Application Multi-Layer Comp - Left ($) -Tubular Bandage Single Layer -Size of Tubigrip Used Size E -Size E ($) 2 Right -Lotion applied to leg before No compression wrap -Multi-Layered Wrap Application -Compression Wrap Unna Boot ($) ( single) -Tubular Bandage Single Layer -Size of Tubigrip Used Size D -Size D ($) 2 Treatment Response Vital Signs Temperature (97.8 F-99.1 F) 97.9 F Temperature Source Temporal Pulse Rate (60-100) 89 Pulse Location Monitor Respiratory Rate (12-18) Respiratory rate source Blood Pressure (90/60-120/80) 193/91 H Blood Pressure Mean 125 Source Monitor Position Blood Pressure Location Pain Scale: 0-10 Numeric Is Patient Pain Free? Yes Yes Teaching: Wound Center Compression Wraps & Stockings -Person Taught Patient,Family -Teaching Method Discussion, Demonstration -Response to teaching Verbalize understanding Discharge Instructions -Person Taught Patient,Family -Teaching Method Discussion -Response to teaching Verbalize understanding WC - Visit Discharge Discharge Condition Stable Stable Ambulatory Status Ambulatory Ambulatory Transportation Private Auto Private Auto Accompanied by Medication Reconcilliation completed & Yes No provided to patient/care provider Clinical Summary of Care Provided Yes Yes Notes: healed, discharged from clinic Assessment/Plan Assessment/Plan (1) Venous stasis dermatitis of right lower extremity: CODE(S): I87.2 - Venous insufficiency (chronic) (peripheral) (2) Chronic venous hypertension with inflammation involving right side: CODE(S): I87.321 - Chronic venous hypertension (idiopathic) with inflammation of right lower extremity (3) Chronic venous insufficiency: CODE(S): I87.2 - Venous insufficiency (chronic) (peripheral) (4) Hyperpigmentation: CODE(S): L81.9 - Disorder of pigmentation, unspecified (5) Lipodermatosclerosis of right lower extremity: CODE(S): I83.11 - Varicose veins of right lower extremity with inflammation (6) Right leg swelling: CODE(S): M79.89 - Other specified soft tissue disorders (7) Left leg swelling: CODE(S): M79.89 - Other specified soft tissue disorders (8) Edema of both legs: CODE(S): R60.0 - Localized edema (9) Obesity (BMI 30-39.9): CODE(S): E66.9 - Obesity, unspecified (10) Hypertension: CODE(S): I10 - Essential (primary) hypertension (11) History of shoulder surgery: CODE(S): Z98.890 - Other specified postprocedural states PLAN: Plan This is a 71-year-old obese female who presented with evidence of chronic venous insufficiency and venous hypertension, and a finding of venous stasis dermatitis on the right pretibial area. She also has a history of swelling and edema in her lower extremities bilaterally, which which is more pronounced late in each day. The patient's right lower extremity ulceration and excoriation are now completely healed. The patient and her have been counseled as to the appropriate conservative treatment measures to be implemented relative to her chronic venous disease. Leg elevation is to be continued, both during daytime and nighttime hours. Her legs are to be elevated to heart level, or higher. She is to continue sleeping on a flat mattress at night. Prolonged idle standing and sitting have been discouraged. Activity has been encouraged. Weight loss has been recommended. We are to continue compression to the lower extremities by means of graduated compression stockings of 20 to 30 mmHg compression, which have been recently prescribed, fitted, and obtained. These are to be worn daily from morning until bedtime hours. A venous duplex ultrasound examination has been obtained which reveals incompetence of the right great saphenous vein above the knee, incompetence of the right small saphenous vein, and incompetence of the right accessory saphenous vein at knee level. It is felt that the patient may ultimately benefit from endovenous laser ablation of the incompetent superficial veins in the right lower extremity, given her long history of symptoms and manifestations related to her venous disease. We have discussed the endovenous laser ablation procedure in detail. The indications and risks have been explained. Expectations have been discussed. We are to continue current conservative treatment measures for now, and will consider the role of endovenous laser ablation for the right great saphenous vein, small saphenous vein, and accessory saphenous vein (knee) in the near future. Currently, measures are to include leg elevation, avoidance of idle standing and sitting, graduated compression stockings, weight control measures, active lifestyle, [id number] analgesics, etc. She is to return for reevaluation in the office setting in several months, at which time consideration will be given to proceeding with an ablation procedure for the incompetent superficial veins of the right lower extremity. Total time: 28 minutes
== END 2022-02-22 16:34 | disposition home or self-care (01) ==
LOC: WC 08:00
PROVIDERS: Visit Provider Surgery
DX: I87.321 Chronic venous hypertension (idiopathic) with inflammation of right lower extremity (principal); I83.11 Varicose veins of right lower extremity with inflammation; I10 Essential (primary) hypertension; R60.0 Localized edema; M79.89 Other specified soft tissue disorders; E66.9 Obesity, unspecified; Z68.37 Body mass index [BMI] 37.0-37.9, adult; Z79.1 Long term (current) use of non-steroidal anti-inflammatories (NSAID); Z79.899 Other long term (current) drug therapy
CPT/HCPCS: 29580; 29581; 93970; 99213; G0463

== ENCOUNTER → 2024-07-15 | Outpatient (CLI) | payer MEDICARE, SELFPAY ==
--- NOTE | 2024-07-15 09:42 | VDLE_ITS ---
Reason For Study Reason For Study: Swelling BLE RIGHT LEFT CFV is compressible, spontaneous, phasic, competent CFV is compressible, spontaneous, phasic, competent, and demonstrates normal augmentation. and demonstrates normal augmentation. FV is compressible, spontaneous, phasic, competent FV is compressible, spontaneous, phasic, competent and demonstrates normal augmentation. and demonstrates normal augmentation. POP V is compressible, spontaneous, phasic, competent POP V is compressible, spontaneous, phasic, competent and demonstrates normal augmentation. and demonstrates normal augmentation. T/P Trunk is compressible. T/P Trunk is compressible. PTV is compressible. PTV is compressible. RT PerV is compressible. LT PerV is compressible. Rt GastrocV is DILATED and NON COMPRESSIBLE SFJ is INCOMPETENT and measures 0.61cm x 0.61 cm. consistent with acute DVT. GSV proximal thigh measures 0.50cm x 0.52 cm. SFJ is competent and measures 0.56cm x 0.55 cm. GSV at knee measures 0.45cm x 0.46 cm. GSV proximal thigh measures 0.49cm x 0.44 cm. GSV INCOMPETENT throughout for greater than 0.5 GSV at knee measures 0.42cm x 0.39 cm. seconds. GSV above knee is INCOMPETENT for greater than 0.5 SSV mid calf is competent and measures 0.35 cm. seconds. ASV proximal calf is INCOMPETENT for greater than 0.5 GSV below knee is competent. seconds and measures 0.30cm x 0.30 cm. SSV mid calf is INCOMPETENT for greater than 0.5 seconds and measures 0.23cm x 0.23 cm. ASV proximal calf is INCOMPETENT for greater than 0.5 seconds and measures 0.41cm x 0.30 cm. Procedure This is a venous duplex using B-mode, color flow and spectral Doppler. Exam performed in department. A preliminary report was called and/or faxed to Dr. Menchaca. VL/Venous Duplex US - Kevin Extrem Interpretation Summary Acute deep vein thrombosis noted in the right gastrocnemius vein. Deep veins of the left lower extremity are patent and compressible segmentally. There is no evidence of left lower extremity deep vein thrombosis. The bilateral great saphenous veins appear nair nt and compressible segmentally. Positive for reflux in the right great saphenous vein above the knee, small sap henous vein, accessory saphenous vein in calf. Positive reflux in the left saphenofemoral junction, great saphenous vein throu ghout, accessory saphenous vein in calf. Ordering Physician: Sabrina Murray Referring Physician: Ty Padilla Performed By: Reshma Wynn, THANH, RVT
== END | disposition home or self-care (01) ==
LOC: CVS 09:42
PROVIDERS: PCP Student in an Organized Health Care Education/Training Program; Referring Provider Physician Assistant; Visit Provider Physician Assistant
DX: R60.0 Localized edema (principal); I87.2 Venous insufficiency (chronic) (peripheral); M79.89 Other specified soft tissue disorders
CPT/HCPCS: 93970

== ENCOUNTER → 2024-10-28 | Outpatient (CLI) | payer MEDICARE, SELFPAY ==
--- NOTE | 2024-10-28 09:31 | VDLE_ITS ---
Reason For Study Reason For Study: Swelling, Hx of Rt GastrocV DVT RIGHT LEFT GSV is normal. CFV is compressible, spontaneous, phasic, competent, CFV is compressible, spontaneous, phasic, competent and demonstrates normal augmentation. and demonstrates normal augmentation. FV is compressible, spontaneous, phasic, competent and demonstrates normal augmentation. POP V is compressible, spontaneous, phasic, competent and demonstrates normal augmentation. T/P Trunk is compressible. PTV is compressible. RT PerV is compressible. Rt GastrocV is partially compressible with bright intraluminal echoes consistent with chronic DVT. Procedure This is a venous duplex using B-mode, color flow and spectral Doppler. Exam performed in department. A preliminary report was called and/or faxed to [facility]. VL/Venous Duplex US, Unilateral Interpretation Summary Chronic deep vein thrombosis noted in the right gastrocnemius vein. Ordering Physician: Sabrina Murray Referring Physician: Ty Padilla Performed By: Reshma Wynn, THANH, RVT
== END | disposition home or self-care (01) ==
LOC: CVS 09:31
PROVIDERS: PCP Student in an Organized Health Care Education/Training Program; Referring Provider Physician Assistant; Visit Provider Physician Assistant
DX: I82.561 Chronic embolism and thrombosis of right calf muscular vein (principal); M79.661 Pain in right lower leg; M79.89 Other specified soft tissue disorders
CPT/HCPCS: 93971